=== PATIENT | male | born 1950 | race Two or more races ===

== ENCOUNTER → 2023-10-21 | Emergency (ER) | payer OTHER ==
[~2023-10-21] VITALS: Ht 175.3 cm; Wt 83.9 kg
[~2023-10-21] MED LIST: AMLODIPINE-OLM1 EACH PO; ATORVASTATIN CA80 MG PO; BAYER CHEWABLE81 MG PO; CARVEDILOL ER40 MG; CLOPIDOGREL BIS75 MG PO; DEXAMETHASONE SODIUM PHOSPHATE 4 MG/ML VIAL IM STA; VYZULTA5 ML OPHT; ZESTRIL40 M1 PO
== END | disposition home or self-care (01) ==
LOC: ER 11:23
DX: R09.82 Postnasal drip (principal)

== ENCOUNTER 2023-10-25 11:20 | Emergency (ER) | payer OTHER ==
[~2023-10-25] VITALS: Ht 175.3 cm; Wt 83.9 kg
[~2023-10-25 11:20] MED LIST changes: -DEXAMETHASONE SODIUM PHOSPHATE 4 MG/ML VIAL IM STA
[2023-10-25] MEDS ORDERED: CARVEDILOL25 MG (11:48)
[2023-10-25] MEDS ORDERED: PLAVIX75 MG (11:49)
[2023-10-25] MEDS ORDERED: DIPHENHYDRAMINE HCL 50 MG/ML VIAL 1ML IM STA (13:10)
[2023-10-25] MEDS ORDERED: METHYLPREDNISOLONE SOD SUCC 125 MG VIAL IM STA (13:10)
[2023-10-25] MEDS ORDERED: LORATADINE10 M1 PO (13:18)
[2023-10-25] MEDS ORDERED: RAYOS5 MG PO (13:18)
== END 2023-10-25 13:52 | disposition home or self-care (01) ==
LOC: ER 11:20
DX: R09.82 Postnasal drip (principal); E78.00 Pure hypercholesterolemia, unspecified; I10 Essential (primary) hypertension
CPT/HCPCS: 96372; 99282; J1200; J2930